=== PATIENT | female | born 1945 | race Caucasian/White ===

== ENCOUNTER 2017-09-11 14:23 | Emergency (ER) | payer OTHER ==
[~2017-09-11] VITALS: Ht 193 cm; Wt 117.6 kg
[~2017-09-11 14:23] MED LIST: ALEVE PM CAPLE1 EACH PO; ATORVASTATIN CA20 MG PO; AZOPT 1% O200 DROP/1 RIGHT EYE; COUMADIN5 MG PO; EYE DROP; EYE DROPS; GABAPENTIN300 MG PO; HUMALOG MI100 UNIT/6 SC; IRBESARTAN300 MG PO; KEFLEX500 MG PO; LUMIGAN 0.50 DROP/22 BOTH EYES; METHADONE5 MG PO; METOPROLOL TART25 MG PO; MONTELUKAST SOD10 MG PO; NEXIUM40 MG PO; OXYCODONE HCL30 MG PO; PERCOCET 5/31 TABLET PO; TYLENOL EXTRA500 MG PO
[2017-09-11 15:25] LABS: BASOPHIL (%) 0.7 % (0-1); EOSINOPHIL (%) 3.8 % (0-5); EOSINOPHIL COUNT 0.2 K/uL (0-0.3); HEMATOCRIT 34.2 % (36.0-46.0); HEMOGLOBIN 11.2 G/DL (11.9-15.5); IMMATURE GRANULOCYTE (%) 0.2 % (0.0-0.7); LYMPHOCYTE (%) 39.7 % (15-42); LYMPHOCYTE COUNT 2.4 K/uL (1.0-2.8); MCH 29.6 PG (29.0-34.0); MCHC 32.7 G/DL (30.0-36.0); MCV 90.5 FL (83-99); MONOCYTE (%) 10.9 % (3-12); MONOCYTE COUNT 0.7 K/uL (0-0.8); NEUTROPHIL (%) 44.7 % (45-76); NEUTROPHIL COUNT 2.7 K/uL (1.8-6.4); PLATELET COUNT 233 K/uL (156-360); RBC DIS.WIDTH-CV 13.7 % (11.8-14.6); RBC DIS.WIDTH-SD 45.5 % (39-53); RED BLOOD COUNT 3.78 M/uL (3.80-5.20); WHITE BLOOD COUNT 6.1 K/uL (4.1-10.2)
[2017-09-11 15:40] LABS: ALBUMIN 3.8 g/dL (3.2-4.8); CHLORIDE 108 mEq/L (99-109); POTASSIUM 4.1 mEq/L (3.7-5.4); SODIUM 141 mEq/L (136-147)
[2017-09-11 15:42] LABS: GLUCOSE 100 mg/dL (70-99)
[2017-09-11 15:44] LABS: TOTAL BILIRUBIN 0.5 mg/dL (0.0-1.0)
[2017-09-11 16:01] LABS: ALKALINE PHOSPHATASE 82 IU/L (3-129)
[2017-09-11 16:02] LABS: CREATININE 1.2 mg/dL (0.6-1.3); GFR ESTIMATE (CALCULATED) 47 mL/min/
[2017-09-11 16:03] LABS: UREA NITROGEN (BUN) 18 mg/dL (9-23)
[2017-09-11 16:04] LABS: ALT (GPT) 18 IU/L (3-49); AST (GOT) 20 IU/L (2-34)
[2017-09-11] MEDS ORDERED: PERCOCET 5/31 TABLET PO (18:08)
[2017-09-11 18:29] LABS: TROP-I INTERPRETATION NEGATIVE; TROPONIN-I 0.02 ng/mL (0.0-0.30)
[2017-09-11 18:36] VITALS: BP 127/74
== END 2017-09-11 18:36 | disposition home or self-care (01) ==
LOC: EME 14:23
PROVIDERS: Emergency Medicine
DX: G50.0 Trigeminal neuralgia (principal); J45.909 Unspecified asthma, uncomplicated; I10 Essential (primary) hypertension; E78.5 Hyperlipidemia, unspecified; K21.9 Gastro-esophageal reflux disease without esophagitis; E11.9 Type 2 diabetes mellitus without complications; Z79.4 Long term (current) use of insulin; H54.62 Unqualified visual loss, left eye, normal vision right eye; F31.9 Bipolar disorder, unspecified; I25.2 Old myocardial infarction; Z95.1 Presence of aortocoronary bypass graft; Z86.73 Personal history of transient ischemic attack (TIA), and cerebral infarction without residual deficits; Z87.891 Personal history of nicotine dependence; Z90.49 Acquired absence of other specified parts of digestive tract; Z88.5 Allergy status to narcotic agent; Z88.6 Allergy status to analgesic agent
CPT/HCPCS: 70450; 70486; 80053; 84484; 85025; 93005; 99281; 99285; J3010

== ENCOUNTER 2017-09-13 12:16 | Emergency (ER) | payer OTHER ==
[~2017-09-13] VITALS: Ht 193 cm; Wt 114.1 kg
[2017-09-13 13:07] LABS: BASOPHIL (%) 0.8 % (0-1); BASOPHIL COUNT 0.1 K/uL (0-0.1); EOSINOPHIL (%) 2.7 % (0-5); EOSINOPHIL COUNT 0.2 K/uL (0-0.3); HEMATOCRIT 37.1 % (36.0-46.0); HEMOGLOBIN 12.4 G/DL (11.9-15.5); IMMATURE GRANULOCYTE (%) 0.1 % (0.0-0.7); LYMPHOCYTE (%) 24.3 % (15-42); LYMPHOCYTE COUNT 1.9 K/uL (1.0-2.8); MCH 29.8 PG (29.0-34.0); MCHC 33.4 G/DL (30.0-36.0); MCV 89.2 FL (83-99); MONOCYTE (%) 7.8 % (3-12); MONOCYTE COUNT 0.6 K/uL (0-0.8); NEUTROPHIL (%) 64.3 % (45-76); NEUTROPHIL COUNT 5.1 K/uL (1.8-6.4); PLATELET COUNT 260 K/uL (156-360); RBC DIS.WIDTH-CV 13.6 % (11.8-14.6); RBC DIS.WIDTH-SD 44.4 % (39-53); RED BLOOD COUNT 4.16 M/uL (3.80-5.20); WHITE BLOOD COUNT 7.9 K/uL (4.1-10.2)
[2017-09-13 13:16] LABS: CHLORIDE 108 mEq/L (99-109); POTASSIUM 4.1 mEq/L (3.7-5.4); SODIUM 138 mEq/L (136-147)
[2017-09-13 13:17] LABS: GLUCOSE 111 mg/dL (70-99)
[2017-09-13 13:21] LABS: CREATININE 1.1 mg/dL (0.6-1.3); GFR ESTIMATE (CALCULATED) 52 mL/min/
[2017-09-13 13:22] LABS: UREA NITROGEN (BUN) 18 mg/dL (9-23)
[2017-09-13 15:16] LABS: ERTH.SED.RATE 42 MM/HR (0-30)
[2017-09-13] MEDS ORDERED: GABAPENTIN100 MG PO (16:10)
[2017-09-13 16:45] VITALS: BP 149/94
== END 2017-09-13 17:36 | disposition home or self-care (01) ==
LOC: EME 12:16
PROVIDERS: Emergency Medicine
DX: R51 Headache (principal); I10 Essential (primary) hypertension; F40.240 Claustrophobia; E78.5 Hyperlipidemia, unspecified; I25.2 Old myocardial infarction; J45.909 Unspecified asthma, uncomplicated; E11.9 Type 2 diabetes mellitus without complications; Z79.4 Long term (current) use of insulin; K21.9 Gastro-esophageal reflux disease without esophagitis; Z95.1 Presence of aortocoronary bypass graft; Z86.73 Personal history of transient ischemic attack (TIA), and cerebral infarction without residual deficits; Z87.891 Personal history of nicotine dependence; Z88.6 Allergy status to analgesic agent; H54.40 Blindness, one eye, unspecified eye; Z88.5 Allergy status to narcotic agent
CPT/HCPCS: 70551; 80048; 85025; 85651; 93005; 99281; 99284; J2060; J3010

== ENCOUNTER 2017-10-14 08:46 | Inpatient (IN) | payer OTHER ==
[~2017-10-14] VITALS: Ht 193 cm; Wt 108.4 kg
[~2017-10-14 08:46] MED LIST changes: +GABAPENTIN100 MG PO
[2017-10-14 09:21] LABS: HEMATOCRIT 35.1 % (36.0-46.0); HEMOGLOBIN 12.1 G/DL (11.9-15.5); MCH 30.9 PG (29.0-34.0); MCHC 34.5 G/DL (30.0-36.0); MCV 89.5 FL (83-99); PLATELET COUNT 179 K/uL (156-360); RBC DIS.WIDTH-CV 14.2 % (11.8-14.6); RBC DIS.WIDTH-SD 46.5 % (39-53); RED BLOOD COUNT 3.92 M/uL (3.80-5.20); WHITE BLOOD COUNT 10.6 K/uL (4.1-10.2)
[2017-10-14 09:29] LABS: CHLORIDE 103 mEq/L (99-109); POTASSIUM 3.7 mEq/L (3.7-5.4); SODIUM 137 mEq/L (136-147)
[2017-10-14 09:31] LABS: GLUCOSE 139 mg/dL (70-99)
[2017-10-14 09:35] LABS: CREATININE 1.7 mg/dL (0.6-1.3); GFR ESTIMATE (CALCULATED) 32 mL/min/
[2017-10-14 09:36] LABS: UREA NITROGEN (BUN) 23 mg/dL (9-23)
[2017-10-14] MEDS ORDERED: TEGRETOL200 MG PO (15:28)
[2017-10-14] MEDS ORDERED: METHADONE5 MG PO (15:28)
[2017-10-14] MEDS ORDERED: ROXICODONE30 MG PO (15:28)
[2017-10-14] MEDS ORDERED: DEPAKOTE ER250 MG PO (15:29)
[2017-10-14] MEDS ORDERED: PROZAC40 MG PO (15:29)
[2017-10-14] MEDS ORDERED: PLAVIX75 MG PO (15:30)
[2017-10-14] MEDS ORDERED: BREO ELLIPTA 21 EACH IH (15:30)
[2017-10-14] MEDS ORDERED: ATROPINE 1100 DROP/5 RIGHT EYE (15:31)
[2017-10-14 17:48] LABS: TROP-I INTERPRETATION NEGATIVE; TROPONIN-I 0.04 ng/mL (0.0-0.30)
[2017-10-14 18:15] VITALS: BP 133/71
[2017-10-14 23:18] VITALS: BP 105/66
[2017-10-15 00:32] LABS: C DIFF TOXIN NEGATIVE (NEGATIVE)
[2017-10-15 03:47] VITALS: BP 109/61
[2017-10-15 06:42] LABS: HEMATOCRIT 31.5 % (36.0-46.0); HEMOGLOBIN 10.3 G/DL (11.9-15.5); MCH 29.4 PG (29.0-34.0); MCHC 32.7 G/DL (30.0-36.0); PLATELET COUNT 140 K/uL (156-360); RBC DIS.WIDTH-CV 14.2 % (11.8-14.6); RBC DIS.WIDTH-SD 46.6 % (39-53); WHITE BLOOD COUNT 8.8 K/uL (4.1-10.2)
[2017-10-15 07:07] LABS: ALBUMIN 3.5 G/DL (3.2-4.8); ALKALINE PHOSPHATASE 88 IU/L (3-129); ALT (GPT) 18 IU/L (3-49); AST (GOT) 15 IU/L (2-34); CHLORIDE 103 MEQ/L (99-109); CREATININE 1.6 MG/DL (0.6-1.3); GFR ESTIMATE (CALCULATED) 34 mL/min/; GLUCOSE 120 mg/dL (70-99); POTASSIUM 3.4 MEQ/L (3.7-5.4); SODIUM 136 MEQ/L (136-147); TOTAL BILIRUBIN 0.4 MG/DL (0.0-1.0); TOTAL PROTEIN 6.7 G/DL (6.4-8.3); UREA NITROGEN (BUN) 30 mg/dL (9-23)
[2017-10-15 07:20] VITALS: BP 110/61
[2017-10-15 09:39] LABS: APPEARANCE SL.HAZY ((CLEAR)); BILIRUBIN SMALL; BLOOD SMALL; COLOR AMBER ((YELLOW)); GLUCOSE (STRIP) NEGATIVE; KETONES NEGATIVE; LEUKOCYTES MODERATE; NITRITE NEGATIVE; PROTEIN (STRIP) 100; SPECIFIC GRAVITY 1.031 (1.000-1.030); UROBILINOGEN 0.2 MG/DL (0.2-1.0)
[2017-10-15 09:43] LABS: MAGNESIUM 1.9 mg/dl (1.3-2.7)
[2017-10-15 09:45] LABS: BACTERIA 3+ /HPF; EPITHELIAL CELLS 1+ /HPF; HYALINE CASTS 20-30 /LPF; MUCUS 4+ /LPF; RED BLOOD CELLS 0-5 /HPF (0-5); UCUL ADDED? YES; WHITE BLOOD CELLS TNTC /HPF (0-5)
[2017-10-15 10:55] VITALS: BP 116/59
[2017-10-15 15:40] VITALS: BP 127/73
[2017-10-15 19:27] VITALS: BP 112/66
[2017-10-15 23:15] VITALS: BP 132/75
[2017-10-16 03:02] VITALS: BP 114/60
[2017-10-16 06:17] LABS: HEMATOCRIT 27.6 % (36.0-46.0); MCH 29.7 PG (29.0-34.0); MCHC 32.6 G/DL (30.0-36.0); MCV 91.1 FL (83-99); PLATELET COUNT 158 K/uL (156-360); RBC DIS.WIDTH-CV 14.2 % (11.8-14.6); RBC DIS.WIDTH-SD 47.2 % (39-53); RED BLOOD COUNT 3.03 M/uL (3.80-5.20); WHITE BLOOD COUNT 7.1 K/uL (4.1-10.2)
[2017-10-16 06:38] LABS: CHLORIDE 107 MEQ/L (99-109); CREATININE 1.3 MG/DL (0.6-1.3); GFR ESTIMATE (CALCULATED) 43 mL/min/; GLUCOSE 105 mg/dL (70-99); POTASSIUM 3.8 MEQ/L (3.7-5.4); SODIUM 137 MEQ/L (136-147); UREA NITROGEN (BUN) 27 mg/dL (9-23)
[2017-10-16 06:46] VITALS: BP 114/64
[2017-10-16 14:00] LABS: IRON 17 MCG/DL (35-150); TRANSFERRIN (TIBC) 153.7 mg/dL (215-380); TRANSFERRIN SATUR. 11 % (20-55)
[2017-10-16 15:39] VITALS: BP 137/69
[2017-10-16 15:40] LABS: TRANSFERRIN (TIBC) 173.9 mg/dL (215-380)
[2017-10-16 21:53] VITALS: BP 124/72
[2017-10-16 23:21] VITALS: BP 125/59
[2017-10-17 06:05] LABS: HEMATOCRIT 28.7 % (36.0-46.0); HEMOGLOBIN 9.1 G/DL (11.9-15.5); MCH 28.9 PG (29.0-34.0); MCHC 31.7 G/DL (30.0-36.0); MCV 91.1 FL (83-99); PLATELET COUNT 179 K/uL (156-360); RBC DIS.WIDTH-CV 14.2 % (11.8-14.6); RBC DIS.WIDTH-SD 47.7 % (39-53); RED BLOOD COUNT 3.15 M/uL (3.80-5.20); WHITE BLOOD COUNT 6.2 K/uL (4.1-10.2)
[2017-10-17 06:38] LABS: CHLORIDE 106 MEQ/L (99-109); CREATININE 1.2 MG/DL (0.6-1.3); GFR ESTIMATE (CALCULATED) 47 mL/min/; GLUCOSE 98 mg/dL (70-99); POTASSIUM 4.2 MEQ/L (3.7-5.4); SODIUM 136 MEQ/L (136-147); UREA NITROGEN (BUN) 25 mg/dL (9-23)
[2017-10-17 07:00] VITALS: BP 117/63
[2017-10-17 16:02] VITALS: BP 133/68
[2017-10-17] MEDS ORDERED: METHADONE5 MG PO (16:05)
[2017-10-17] MEDS ORDERED: TYLENOL REGULA325 MG PO (16:05)
[2017-10-17] MEDS ORDERED: XARELTO15 MG PO (16:07)
[2017-10-17] MEDS ORDERED: XARELTO20 MG PO (16:09)
== END 2017-10-17 19:25 | disposition home health service (06) | DRG 312 ==
LOC: EME 08:46 → 5EAST 16:33 → EDOF 16:33 → ENRESERV 16:35 → 5EAST 18:09
PROVIDERS: Internal Medicine; Physician Assistant; Student in an Organized Health Care Education/Training Program
DX: I95.1 Orthostatic hypotension (principal); E86.1 Hypovolemia; R19.7 Diarrhea, unspecified; N17.9 Acute kidney failure, unspecified; I82.441 Acute embolism and thrombosis of right tibial vein; E87.6 Hypokalemia; E11.39 Type 2 diabetes mellitus with other diabetic ophthalmic complication; H54.62 Unqualified visual loss, left eye, normal vision right eye; G50.0 Trigeminal neuralgia; D64.9 Anemia, unspecified; I25.10 Atherosclerotic heart disease of native coronary artery without angina pectoris; D72.829 Elevated white blood cell count, unspecified; I10 Essential (primary) hypertension; E78.5 Hyperlipidemia, unspecified; I25.2 Old myocardial infarction; J45.909 Unspecified asthma, uncomplicated; K21.9 Gastro-esophageal reflux disease without esophagitis; M19.90 Unspecified osteoarthritis, unspecified site; Z86.73 Personal history of transient ischemic attack (TIA), and cerebral infarction without residual deficits; Z86.711 Personal history of pulmonary embolism; Z87.891 Personal history of nicotine dependence; Z95.1 Presence of aortocoronary bypass graft; Z95.5 Presence of coronary angioplasty implant and graft; Z79.4 Long term (current) use of insulin; Z79.02 Long term (current) use of antithrombotics/antiplatelets
CPT/HCPCS: 70450; 71046; 80048; 80053; 81003; 82272; 82728; 82948; 83540; 83630; 83735; 84466; 84484; 85027; 87086; 87493; 93005; 93971; 94640; 94640 76; 97530 GP; 99281; 99285; J1650; J1815; J7030; S0030